=== PATIENT | female | born 1955 | race Caucasian/White ===

== ENCOUNTER 2021-02-06 10:17 | Inpatient (IN) ==
[2021-02-06] MEDS ORDERED: 0.9 % Sodium Chloride 1,000 ML IVC ONE ×2 (10:28→10:38)
[2021-02-06] MEDS ORDERED: Ondansetron 4 MG/2 ML VIAL IVP ONE (10:28)
[2021-02-06] MEDS ORDERED: Ipratropium/Albuterol Neb 3 ML IH ONE (10:30)
[2021-02-06] MEDS ORDERED: Isovue-370 500 ML BOTTLE IVP ONE (10:32)
[2021-02-06 10:53] LABS: Basophils % 0.2 %; Hematocrit 50.5 % (35.3-44.9); Hemoglobin 17.3 g/dL (11.5-15.4); Immature Granulocytes % 0.7 % (0-4); Lymphocytes # 2.5 K/mcL (0.6-4.6); Lymphocytes % 14.2 %; Mean Corpuscular HGB Conc 34.3 g/dL (31.6-35.5); Mean Corpuscular Hemoglobin 31.1 pg (28.0-33.3); Mean Corpuscular Volume 90.7 fL (83.0-100.0); Mean Platelet Volume 9.8 fL (9.4-12.4); Monocytes # 1.2 K/mcL (0.0-1.3); Monocytes % 6.7 %; Neutrophils # 13.5 K/mcL (1.6-8.9); Platelet Count 161 K/mcL (140-400); Red Blood Count 5.57 M/mcL (3.82-4.97); Red Cell Distribution Width 14.3 % (11.5-14.5); Segmented Neutrophils % 78.2 %; White Blood Count 17.2 K/mcL (4.3-11.1)
[2021-02-06 11:20] LABS: Alanine Aminotransferase 47 Units/L (7-52); Albumin 4.1 g/dL (3.5-5.7); Albumin/Globulin Ratio 0.8 (1.1-2.2); Alkaline Phosphatase 120 Units/L (34-104); Amylase 22 Units/L (29-103); Aspartate Amino Transferase 54 Units/L (13-39); BUN/Creatinine Ratio 30 (6-26); Bilirubin,Direct 0.7 mg/dL (0.0-0.2); Bilirubin,Indirect 1.3 mg/dL (0.0-1.0); Blood Urea Nitrogen 21 mg/dL (8-23); Carbon Dioxide 22 mEq/L (23-29); Chloride 96 mEq/L (98-107); Globulin 5.2 g/dL (2.4-3.5); Glucose 129 mg/dL (70-105); Lipase 9 Units/L (11-82); Osmolality,Calculated 275 (280-300); Potassium 3.3 mEq/L (3.5-5.1); Sodium 130 mEq/L (136-145); Total Protein 9.3 g/dL (6.4-8.9); Troponin I 1.87 ng/mL (< 0.04); eGFR For African Americans > 60 (> 60); eGFR For Non-African Americans > 60 (> 60)
[2021-02-06] MEDS ORDERED: Piperacillin/Tazobactam 3.375 GM in 0.9 % Sodium Chloride Mini Bag 100 ML IVPB ONE (11:26)
[2021-02-06] MEDS ORDERED: Aspirin Enteric Coated 325 MG Tablet PO STA (11:28)
[2021-02-06] MEDS ORDERED: *HR* Heparin 5,000 UNIT/ML VIAL IVP ONE (11:29)
[2021-02-06] MEDS ORDERED: *HR* Heparin 5,000 UNIT/ML VIAL IVP PRN (11:29)
[2021-02-06 12:02] LABS: Influenza A PCR Negative (Negative); Influenza B PCR Negative (Negative); Resp. Syncytial Virus PCR Negative (Negative); SARS-CoV-2 by PCR (In House) Negative (Negative)
[2021-02-06] MEDS ORDERED: DilTIAZem 50 MG in 0.9 % Sodium Chloride 40 ML IVC SCH (12:30)
[2021-02-06] MEDS ORDERED: Perflutren Lipid Microsphere 1.3 ML in 0.9 % Sodium Chloride 8.7 ML IVP PRN (12:31)
[2021-02-06] MEDS: Heparin 25,000UNIT/250ML 1/2NS 25,000 UNIT/250 ML IV.SOLN IVC SCH (12:43)
[2021-02-06 13:47] LABS: Bilirubin,Urine Negative (Negative); Blood,Urine Moderate (Negative); Clarity,Urine Clear (Clear); Color,Urine Colorless (Yellow); Glucose,Urine (UA) Normal (Normal); Ketones,Urine Negative (Negative); Leukocyte Esterase,Urine Negative (Negative); Mucus,Urine Few per lpf (None-Few); Nitrite,Urine Negative (Negative); PH,Urine 6.5 pH Units (5.0-8.0); Protein,Urine 30 mg/dL (Neg-Trace); Specific Gravity,Urine > 1.030 (1.010-1.025); Squamous Epithelial Cell,Urine Few per hpf (None-Few); Urobilinogen,Urine Normal (Normal); WBC,Urine 0-3 per hpf (0-3)
[2021-02-06] MEDS ORDERED: Naloxone 0.4 MG/ML INJ IVP PRN (14:17)
[2021-02-06] MEDS: 0.9 % Sodium Chloride w KCl 20 MEQ/1,000 ML MLS IVC SCH (17:21)
[2021-02-06] MEDS: Pantoprazole 40 MG VIAL IVP SCH (17:22)
[2021-02-06] MEDS: *HR* HYDROcodone/Acet 5/325 mg TABLET PO PRN (17:22)
[2021-02-06] MEDS ORDERED: Nitroglycerin 0.4 MG TAB.SUBL SL PRN (17:34)
[2021-02-06] MEDS ORDERED: GI Cocktail 40 ML EACH PO ONE (18:04)
[2021-02-06] MEDS: Ipratropium Neb 0.5 MG NEBULIZER IH SCH (20:02)
[2021-02-06] MEDS: Levalbuterol Neb 1.25 MG/3 ML IH SCH (20:02)
[2021-02-07] MEDS: Levalbuterol Neb 1.25 MG/3 ML IH SCH ×4 (03:51→20:43)
[2021-02-07] MEDS: Ipratropium Neb 0.5 MG NEBULIZER IH SCH ×4 (03:51→20:43)
[2021-02-07 06:02] LABS: Alanine Aminotransferase 29 Units/L (7-52); Albumin 2.8 g/dL (3.5-5.7); Albumin/Globulin Ratio 0.8 (1.1-2.2); Alkaline Phosphatase 74 Units/L (34-104); Aspartate Amino Transferase 37 Units/L (13-39); BUN/Creatinine Ratio 32 (6-26); Bilirubin,Direct 0.3 mg/dL (0.0-0.2); Bilirubin,Indirect 0.8 mg/dL (0.0-1.0); Bilirubin,Total 1.1 mg/dL (0.3-1.0); Blood Urea Nitrogen 20 mg/dL (8-23); Calcium 8.5 mg/dL (8.6-10.3); Carbon Dioxide 21 mEq/L (23-29); Chloride 109 mEq/L (98-107); Chol/HDL Ratio 3.7 (0-4.9); Cholesterol 108 mg/dL (< 200); Globulin 3.3 g/dL (2.4-3.5); Glucose 100 mg/dL (70-105); HDL Cholesterol 29 mg/dL (40-59); LDL Cholesterol,Calculated 65 mg/dL (< 100); Osmolality,Calculated 281 (280-300); Potassium 4.2 mEq/L (3.5-5.1); Sodium 134 mEq/L (136-145); Total Protein 6.1 g/dL (6.4-8.9); Triglycerides 70 mg/dL (< 150); eGFR For African Americans > 60 (> 60); eGFR For Non-African Americans > 60 (> 60)
[2021-02-07 06:09] LABS: Estimated Average Glucose 94 mg/dl; Hemoglobin A1C 4.9 %
[2021-02-07] MEDS: Pantoprazole 40 MG VIAL IVP SCH ×2 (06:10→18:30)
[2021-02-07] MEDS: *HR* HYDROcodone/Acet 5/325 mg TABLET PO PRN ×2 (07:23→13:28)
[2021-02-07] MEDS: Aspirin Enteric Coated 81 MG Tablet PO SCH (08:27)
[2021-02-07] MEDS: 0.9 % Sodium Chloride w KCl 20 MEQ/1,000 ML MLS IVC SCH ×2 (08:27→22:35)
[2021-02-07] MEDS: Ondansetron 4 MG/2 ML VIAL IVP PRN (09:44)
[2021-02-07] MEDS: Lidocaine Viscous Oral Soln 15 ML SOLUTION MM PRN (10:46)
[2021-02-07 11:15] LABS: Basophils % 0.1 %; Hematocrit 41.2 % (35.3-44.9); Immature Granulocytes % 0.5 % (0-4); Lymphocytes # 2.6 K/mcL (0.6-4.6); Lymphocytes % 19.3 %; Mean Corpuscular Hemoglobin 32.2 pg (28.0-33.3); Mean Corpuscular Volume 94.7 fL (83.0-100.0); Mean Platelet Volume 10.2 fL (9.4-12.4); Monocytes # 0.9 K/mcL (0.0-1.3); Monocytes % 6.5 %; Platelet Count 124 K/mcL (140-400); Red Blood Count 4.35 M/mcL (3.82-4.97); Red Cell Distribution Width 14.7 % (11.5-14.5); Segmented Neutrophils % 73.6 %
[2021-02-07 11:22] LABS: Neutrophils # 9.9 K/mcL (1.6-8.9); White Blood Count 13.4 K/mcL (4.3-11.1)
[2021-02-07] MEDS: lisinopriL 5 MG TABLET PO SCH (12:11)
[2021-02-07] MEDS: Sucralfate 1 GM TABLET PO SCH ×2 (15:48→22:26)
[2021-02-07 18:23] LABS: Hepatitis B Core IgM Nonreactive (Nonreactive); Hepatitis C Virus Antibody Nonreactive (Nonreactive)
[2021-02-07 18:25] LABS: Hepatitis A Antibody IgM Nonreactive (Nonreactive)
[2021-02-07] MEDS ORDERED: 0.9 % Sodium Chloride 500 ML ONE (20:42)
[2021-02-07] MEDS ORDERED: 0.9 % Sodium Chloride 500 ML IVC ONE ×2 (20:45→23:31)
[2021-02-07] MEDS: Acetaminophen 325 MG TABLET PO PRN (22:27)
[2021-02-07] MEDS: Heparin 25,000UNIT/250ML 1/2NS 25,000 UNIT/250 ML IV.SOLN IVC SCH (22:34)
[2021-02-07] MEDS: *HR* Heparin 5,000 UNIT/ML VIAL IVP PRN (22:36)
[2021-02-07 22:59] LABS: Hepatitis B Surface Antigen Reactive (Nonreactive)
[2021-02-08 00:46] LABS: Red Cell Distribution Width 14.8 % (11.5-14.5)
[2021-02-08 00:48] LABS: Hematocrit 33.6 % (35.3-44.9); Immature Platelets 2.7 % (1.1-6.1); Mean Corpuscular HGB Conc 32.7 g/dL (31.6-35.5); Mean Corpuscular Hemoglobin 31.4 pg (28.0-33.3); Mean Platelet Volume 9.8 fL (9.4-12.4); Red Blood Count 3.5 M/mcL (3.82-4.97); White Blood Count 5.2 K/mcL (4.3-11.1)
[2021-02-08] MEDS: Albumin 25% 25gram/100mL 25 GM/100 ML IV.SOLN IVPB SCH ×2 (00:53→07:41)
[2021-02-08 01:05] LABS: BUN/Creatinine Ratio 36 (6-26); Blood Urea Nitrogen 19 mg/dL (8-23); Calcium 8.2 mg/dL (8.6-10.3); Carbon Dioxide 21 mEq/L (23-29); Chloride 111 mEq/L (98-107); Glucose 92 mg/dL (70-105); Osmolality,Calculated 282 (280-300); Potassium 4.2 mEq/L (3.5-5.1); Sodium 135 mEq/L (136-145); eGFR For African Americans > 60 (> 60); eGFR For Non-African Americans > 60 (> 60)
[2021-02-08] MEDS ORDERED: Isovue-370 500 ML BOTTLE IVP ONE (02:38)
[2021-02-08] MEDS: Levalbuterol Neb 1.25 MG/3 ML IH SCH ×4 (04:09→19:45)
[2021-02-08] MEDS: Ipratropium Neb 0.5 MG NEBULIZER IH SCH ×4 (04:09→19:45)
[2021-02-08 04:50] LABS: Basophils % 0.3 %; Eosinophils % 0.3 %; Hematocrit 32.7 % (35.3-44.9); Hemoglobin 10.8 g/dL (11.5-15.4); Immature Granulocytes % 0.3 % (0-4); Lymphocytes # 1.9 K/mcL (0.6-4.6); Lymphocytes % 47.2 %; Mean Corpuscular Hemoglobin 32.3 pg (28.0-33.3); Mean Corpuscular Volume 97.9 fL (83.0-100.0); Mean Platelet Volume 9.9 fL (9.4-12.4); Monocytes # 0.3 K/mcL (0.0-1.3); Monocytes % 6.8 %; Neutrophils # 1.8 K/mcL (1.6-8.9); Red Blood Count 3.34 M/mcL (3.82-4.97); Red Cell Distribution Width 14.7 % (11.5-14.5); Segmented Neutrophils % 45.1 %
[2021-02-08 04:52] LABS: Platelet Count 67 K/mcL (140-400)
[2021-02-08] MEDS: *HR* Heparin 5,000 UNIT/ML VIAL IVP PRN (05:53)
[2021-02-08] MEDS: Sucralfate 1 GM TABLET PO SCH ×4 (05:53→21:03)
[2021-02-08] MEDS: Pantoprazole 40 MG VIAL IVP SCH ×2 (05:53→21:04)
[2021-02-08] MEDS: Aspirin Enteric Coated 81 MG Tablet PO SCH (07:41)
[2021-02-08] MEDS: lisinopriL 5 MG TABLET PO SCH ×2 (07:43→11:15)
[2021-02-08] MEDS: *HR* HYDROcodone/Acet 5/325 mg TABLET PO PRN (11:16)
[2021-02-08] MEDS: Lidocaine Viscous Oral Soln 15 ML SOLUTION MM PRN (11:52)
[2021-02-08] MEDS ORDERED: Morphine Sulfate 2 MG/ML SYRINGE IVP ONE (12:00)
[2021-02-08] MEDS ORDERED: *HR* Labetalol 20 MG/4 ML SYRINGE IVP ONE (12:50)
[2021-02-08] MEDS ORDERED: *HR* Labetalol 20 MG/4 ML SYRINGE IVP STA (12:55)
[2021-02-08] MEDS: 0.9 % Sodium Chloride w KCl 20 MEQ/1,000 ML MLS IVC SCH ×2 (12:59→16:27)
[2021-02-08] MEDS ORDERED: methylPREDNISolone 125 MG/2 ML VIAL IVP ONE (13:13)
[2021-02-08] MEDS ORDERED: methylPREDNISolone 125 MG/2 ML VIAL ONE (13:18)
[2021-02-08] MEDS ORDERED: hydrOXYzine pamoate 25 MG CAPSULE PO PRN (17:56)
[2021-02-08] MEDS: traZODone 50 MG TABLET PO SCH (21:03)
[2021-02-09] MEDS: Levalbuterol Neb 1.25 MG/3 ML IH SCH ×5 (03:54→22:01)
[2021-02-09] MEDS: Ipratropium Neb 0.5 MG NEBULIZER IH SCH ×4 (03:54→22:01)
[2021-02-09] MEDS: Pantoprazole 40 MG VIAL IVP SCH ×2 (04:45→15:23)
[2021-02-09 06:49] LABS: INR 1.4; Prothrombin Time 15.4 Seconds (9.4-12.1)
[2021-02-09 06:52] LABS: Hematocrit 32.3 % (35.3-44.9); Hemoglobin 10.5 g/dL (11.5-15.4); Immature Granulocytes % 0.4 % (0-4); Immature Platelets 3.4 % (1.1-6.1); Lymphocytes # 0.8 K/mcL (0.6-4.6); Mean Corpuscular HGB Conc 32.5 g/dL (31.6-35.5); Mean Corpuscular Hemoglobin 31.5 pg (28.0-33.3); Monocytes # 0.2 K/mcL (0.0-1.3); Monocytes % 6.1 %; Neutrophils # 1.8 K/mcL (1.6-8.9); Red Blood Count 3.33 M/mcL (3.82-4.97); Red Cell Distribution Width 14.7 % (11.5-14.5); Segmented Neutrophils % 63.5 %; White Blood Count 2.8 K/mcL (4.3-11.1)
[2021-02-09 06:55] LABS: Platelet Count 90 K/mcL (140-400)
[2021-02-09] MEDS: 0.9 % Sodium Chloride w KCl 20 MEQ/1,000 ML MLS IVC SCH ×2 (06:56→20:05)
[2021-02-09 07:06] LABS: BUN/Creatinine Ratio 23 (6-26); Blood Urea Nitrogen 13 mg/dL (8-23); Carbon Dioxide 26 mEq/L (23-29); Chloride 112 mEq/L (98-107); Glucose 108 mg/dL (70-105); Osmolality,Calculated 291 (280-300); Potassium 4.7 mEq/L (3.5-5.1); Sodium 140 mEq/L (136-145); eGFR For African Americans > 60 (> 60); eGFR For Non-African Americans > 60 (> 60)
[2021-02-09] MEDS: Aspirin Enteric Coated 81 MG Tablet PO SCH (08:32)
[2021-02-09] MEDS: Sucralfate 1 GM TABLET PO SCH ×4 (08:33→23:24)
[2021-02-09] MEDS: lisinopriL 5 MG TABLET PO SCH (08:33)
[2021-02-09] MEDS: predniSONE 20 MG TABLET PO SCH (09:59)
[2021-02-09] MEDS: Acetaminophen 325 MG TABLET PO PRN (16:10)
[2021-02-09] MEDS ORDERED: SODIUM CHLORIDE/NAHCO3/KCL/PEG 4,000 ML SOLN.RECON PO ONE (17:00)
[2021-02-09] MEDS: Ondansetron 4 MG/2 ML VIAL IVP PRN (17:15)
[2021-02-09] MEDS ORDERED: *HR* Promethazine 25 MG/ML VIAL IM PRN (18:01)
[2021-02-09] MEDS ORDERED: Levalbuterol Neb 1.25 MG/3 ML IH PRN (18:54)
[2021-02-09] MEDS: *HR* Labetalol 20 MG/4 ML SYRINGE IVP PRN ×2 (21:33→21:57)
[2021-02-09] MEDS ORDERED: niCARdipine 20 MG/200 ML MLS IVC SCH (22:15)
[2021-02-09 23:07] LABS: BUN/Creatinine Ratio 24 (6-26); Blood Urea Nitrogen 14 mg/dL (8-23); Carbon Dioxide 26 mEq/L (23-29); Chloride 107 mEq/L (98-107); Glucose 151 mg/dL (70-105); Magnesium 1.8 mg/dL (1.6-2.6); Osmolality,Calculated 287 (280-300); Potassium 4.4 mEq/L (3.5-5.1); Sodium 137 mEq/L (136-145); eGFR For African Americans > 60 (> 60); eGFR For Non-African Americans > 60 (> 60)
[2021-02-09] MEDS: traZODone 50 MG TABLET PO SCH (23:24)
[2021-02-10] MEDS ORDERED: 0.9 % Sodium Chloride 250 ML IVC ONE (01:02)
[2021-02-10 01:34] LABS: Basophils % 0.1 %; Mean Corpuscular Volume 96.1 fL (83.0-100.0)
[2021-02-10 01:36] LABS: Hematocrit 36.6 % (35.3-44.9); Hemoglobin 12.2 g/dL (11.5-15.4); Immature Platelets 2.2 % (1.1-6.1); Lymphocytes # 1.6 K/mcL (0.6-4.6); Lymphocytes % 17.8 %; Mean Corpuscular HGB Conc 33.3 g/dL (31.6-35.5); Mean Platelet Volume 9.5 fL (9.4-12.4); Monocytes # 0.6 K/mcL (0.0-1.3); Monocytes % 6.6 %; Platelet Count 140 K/mcL (140-400); Red Blood Count 3.81 M/mcL (3.82-4.97); Red Cell Distribution Width 14.7 % (11.5-14.5); Segmented Neutrophils % 74.5 %; White Blood Count 9.2 K/mcL (4.3-11.1)
[2021-02-10 02:02] LABS: BUN/Creatinine Ratio 23 (6-26); Blood Urea Nitrogen 14 mg/dL (8-23); Calcium 8.6 mg/dL (8.6-10.3); Carbon Dioxide 25 mEq/L (23-29); Chloride 107 mEq/L (98-107); Glucose 126 mg/dL (70-105); Osmolality,Calculated 288 (280-300); Potassium 3.9 mEq/L (3.5-5.1); Sodium 138 mEq/L (136-145); eGFR For African Americans > 60 (> 60); eGFR For Non-African Americans > 60 (> 60)
[2021-02-10 02:05] LABS: Basophils % 0.2 %; Hemoglobin 13.2 g/dL (11.5-15.4); Immature Granulocytes % 1.3 % (0-4); Lymphocytes # 1.4 K/mcL (0.6-4.6); Lymphocytes % 14.4 %; Mean Corpuscular HGB Conc 33.8 g/dL (31.6-35.5); Mean Corpuscular Volume 94.7 fL (83.0-100.0); Mean Platelet Volume 9.5 fL (9.4-12.4); Monocytes # 0.7 K/mcL (0.0-1.3); Monocytes % 6.8 %; Neutrophils # 7.4 K/mcL (1.6-8.9); Platelet Count 128 K/mcL (140-400); Red Blood Count 4.12 M/mcL (3.82-4.97); Red Cell Distribution Width 14.8 % (11.5-14.5); Segmented Neutrophils % 77.3 %; White Blood Count 9.6 K/mcL (4.3-11.1)
[2021-02-10 02:07] LABS: Neutrophils # 6.9 K/mcL (1.6-8.9)
[2021-02-10] MEDS: Ipratropium Neb 0.5 MG NEBULIZER IH SCH ×4 (03:33→22:14)
[2021-02-10] MEDS: Levalbuterol Neb 1.25 MG/3 ML IH SCH ×4 (03:33→22:14)
[2021-02-10] MEDS: Pantoprazole 40 MG VIAL IVP SCH ×2 (05:07→16:15)
[2021-02-10] MEDS: Sucralfate 1 GM TABLET PO SCH ×4 (07:37→20:58)
[2021-02-10] MEDS: lisinopriL 5 MG TABLET PO SCH (07:37)
[2021-02-10] MEDS: predniSONE 20 MG TABLET PO SCH (07:37)
[2021-02-10] MEDS: Acetaminophen 325 MG TABLET PO PRN (07:37)
[2021-02-10] MEDS: Aspirin Enteric Coated 81 MG Tablet PO SCH (07:38)
[2021-02-10] MEDS: *HR* Labetalol 20 MG/4 ML SYRINGE IVP PRN (09:07)
[2021-02-10] MEDS ORDERED: *HR* Labetalol 20 MG/4 ML SYRINGE IVP PRN (09:50)
[2021-02-10] MEDS ORDERED: *HR* Labetalol 20 MG/4 ML SYRINGE IVP ONE (09:50)
[2021-02-10] MEDS: *HR* HYDROcodone/Acet 5/325 mg TABLET PO PRN (10:58)
[2021-02-10] MEDS ORDERED: lisinopriL 20 MG TABLET PO SCH (13:30)
[2021-02-10] MEDS: amLODIPine 5 MG TABLET PO SCH (13:43)
[2021-02-10] MEDS ORDERED: hydrALAZINE 25 MG TABLET PO ONE (15:53)
[2021-02-10] MEDS ORDERED: hydrALAZINE 25 MG TABLET PO SCH (16:00)
[2021-02-10] MEDS ORDERED: 0.9 % Sodium Chloride 500 ML ONE ×2 (17:08→18:36)
[2021-02-10] MEDS: 0.9 % Sodium Chloride 500 ML IVC ONE ×2 (17:19→17:21)
[2021-02-10] MEDS ORDERED: 0.9 % Sodium Chloride 500 ML IVC ONE (18:39)
[2021-02-10] MEDS: traZODone 50 MG TABLET PO SCH (20:58)
[2021-02-11] MEDS: Ipratropium Neb 0.5 MG NEBULIZER IH SCH ×4 (04:37→21:56)
[2021-02-11] MEDS: Levalbuterol Neb 1.25 MG/3 ML IH SCH ×4 (04:37→21:56)
[2021-02-11] MEDS: Pantoprazole 40 MG VIAL IVP SCH (05:20)
[2021-02-11 08:08] LABS: Basophils % 0.2 %; Eosinophils % 0.2 %; Red Cell Distribution Width 14.6 % (11.5-14.5)
[2021-02-11 08:10] LABS: Hematocrit 40.4 % (35.3-44.9); Hemoglobin 13.4 g/dL (11.5-15.4); Immature Granulocytes % 0.6 % (0-4); Immature Platelets 3.4 % (1.1-6.1); Lymphocytes # 1.3 K/mcL (0.6-4.6); Lymphocytes % 26.2 %; Mean Corpuscular HGB Conc 33.2 g/dL (31.6-35.5); Mean Corpuscular Hemoglobin 31.7 pg (28.0-33.3); Mean Corpuscular Volume 95.5 fL (83.0-100.0); Mean Platelet Volume 9.5 fL (9.4-12.4); Monocytes # 0.3 K/mcL (0.0-1.3); Monocytes % 6.6 %; Neutrophils # 3.3 K/mcL (1.6-8.9); Platelet Count 114 K/mcL (140-400); Red Blood Count 4.23 M/mcL (3.82-4.97); Segmented Neutrophils % 66.2 %
[2021-02-11 08:32] LABS: Albumin 3.2 g/dL (3.5-5.7); Albumin/Globulin Ratio 1.1 (1.1-2.2); Bilirubin,Direct 0.4 mg/dL (0.0-0.2); Bilirubin,Indirect 0.6 mg/dL (0.0-1.0); Globulin 2.8 g/dL (2.4-3.5)
[2021-02-11 08:35] LABS: BUN/Creatinine Ratio 30 (6-26); Blood Urea Nitrogen 17 mg/dL (8-23); Calcium 8.8 mg/dL (8.6-10.3); Carbon Dioxide 29 mEq/L (23-29); Chloride 103 mEq/L (98-107); Glucose 86 mg/dL (70-105); Magnesium 1.7 mg/dL (1.6-2.6); Osmolality,Calculated 285 (280-300); Phosphorous 3.6 mg/dL (2.7-4.5); Sodium 137 mEq/L (136-145); eGFR For African Americans > 60 (> 60); eGFR For Non-African Americans > 60 (> 60)
[2021-02-11] MEDS: Aspirin Enteric Coated 81 MG Tablet PO SCH (09:06)
[2021-02-11] MEDS: predniSONE 20 MG TABLET PO SCH (09:06)
[2021-02-11] MEDS: Sucralfate 1 GM TABLET PO SCH ×4 (09:06→21:29)
[2021-02-11] MEDS: amLODIPine 5 MG TABLET PO SCH ×2 (09:06→09:41)
[2021-02-11] MEDS: lisinopriL 20 MG TABLET PO SCH ×2 (09:06→11:07)
[2021-02-11] MEDS: Ondansetron 4 MG/2 ML VIAL IVP PRN ×2 (10:55→21:29)
[2021-02-11 11:20] LABS: Hepatitis B Core Ab Total POSITIVE (Negative)
[2021-02-11 11:23] LABS: HBV Quant Interpretation DETECTED (Not Detected); HBV Quant Log by PCR 7.03 log IU/mL
[2021-02-11] MEDS: *HR* HYDROcodone/Acet 5/325 mg TABLET PO PRN (11:54)
[2021-02-11] MEDS ORDERED: GI Cocktail 40 ML EACH PO ONE (13:05)
[2021-02-11] MEDS: Famotidine 20 MG/2 ML VIAL IVP SCH ×2 (13:13→17:36)
[2021-02-11] MEDS: hydrALAZINE 25 MG TABLET PO SCH ×2 (13:15→21:29)
[2021-02-11] MEDS ORDERED: Metoclopramide 10 MG/2 ML VIAL IVP PRN (13:40)
[2021-02-11] MEDS: carvediloL 6.25 MG TABLET PO SCH (17:36)
[2021-02-11] MEDS: Lidocaine Viscous Oral Soln 15 ML SOLUTION MM PRN (20:38)
[2021-02-11] MEDS: traZODone 50 MG TABLET PO SCH (21:29)
[2021-02-12] MEDS: Ipratropium Neb 0.5 MG NEBULIZER IH SCH ×2 (04:22→13:09)
[2021-02-12] MEDS: Levalbuterol Neb 1.25 MG/3 ML IH SCH ×2 (04:22→13:09)
[2021-02-12] MEDS: hydrALAZINE 25 MG TABLET PO SCH ×3 (04:25→20:04)
[2021-02-12] MEDS: Famotidine 20 MG/2 ML VIAL IVP SCH ×2 (05:26→17:59)
[2021-02-12 06:23] LABS: Basophils % 0.1 %; Eosinophils % 0.3 %; Hematocrit 40.9 % (35.3-44.9); Hemoglobin 14.2 g/dL (11.5-15.4); Immature Granulocytes % 0.8 % (0-4); Lymphocytes # 1.9 K/mcL (0.6-4.6); Lymphocytes % 18.7 %; Mean Corpuscular HGB Conc 34.7 g/dL (31.6-35.5); Mean Corpuscular Hemoglobin 32.3 pg (28.0-33.3); Mean Corpuscular Volume 93.2 fL (83.0-100.0); Mean Platelet Volume 9.1 fL (9.4-12.4); Monocytes # 0.6 K/mcL (0.0-1.3); Neutrophils # 7.5 K/mcL (1.6-8.9); Platelet Count 107 K/mcL (140-400); Red Blood Count 4.39 M/mcL (3.82-4.97); Red Cell Distribution Width 14.5 % (11.5-14.5); Segmented Neutrophils % 74.1 %; White Blood Count 10.1 K/mcL (4.3-11.1)
[2021-02-12 06:47] LABS: BUN/Creatinine Ratio 28 (6-26); Blood Urea Nitrogen 17 mg/dL (8-23); Calcium 8.8 mg/dL (8.6-10.3); Carbon Dioxide 27 mEq/L (23-29); Chloride 99 mEq/L (98-107); Glucose 101 mg/dL (70-105); Magnesium 1.8 mg/dL (1.6-2.6); Osmolality,Calculated 276 (280-300); Phosphorous 3.1 mg/dL (2.7-4.5); Potassium 4.1 mEq/L (3.5-5.1); Sodium 132 mEq/L (136-145); eGFR For African Americans > 60 (> 60); eGFR For Non-African Americans > 60 (> 60)
[2021-02-12] MEDS ORDERED: Lidocaine -MPF 2% 5 ML VIAL ONE (07:57)
[2021-02-12] MEDS ORDERED: EPHEDrine 50 MG/ML VIAL ONE (07:58)
[2021-02-12] MEDS ORDERED: Levalbuterol Neb 1.25 MG/3 ML IH STA (08:08)
[2021-02-12] MEDS: Aspirin Enteric Coated 81 MG Tablet PO SCH (09:20)
[2021-02-12] MEDS: amLODIPine 5 MG TABLET PO SCH (09:20)
[2021-02-12] MEDS: predniSONE 20 MG TABLET PO SCH (09:20)
[2021-02-12] MEDS: Sucralfate 1 GM TABLET PO SCH ×4 (09:20→22:02)
[2021-02-12] MEDS: lisinopriL 20 MG TABLET PO SCH (09:20)
[2021-02-12] MEDS: carvediloL 6.25 MG TABLET PO SCH ×2 (09:20→16:15)
[2021-02-12] MEDS: Ondansetron 4 MG/2 ML VIAL IVP PRN (09:31)
[2021-02-12 10:34] LABS: Hepatitis Be Antigen POSITIVE (Negative)
[2021-02-12] MEDS: Ipratropium/Albuterol Neb 3 ML IH SCH ×4 (11:01→23:10)
[2021-02-12] MEDS: Acetaminophen 325 MG TABLET PO PRN (12:14)
[2021-02-12] MEDS: MethylPREDNISolone 40 MG/ML VIAL IVP SCH (16:15)
[2021-02-12] MEDS: traZODone 50 MG TABLET PO SCH (22:02)
[2021-02-13] MEDS: MethylPREDNISolone 40 MG/ML VIAL IVP SCH ×3 (00:04→17:10)
[2021-02-13 02:52] LABS: Basophils % 0.1 %; Hematocrit 45.2 % (35.3-44.9); Hemoglobin 15.5 g/dL (11.5-15.4); Immature Granulocytes % 0.8 % (0-4); Lymphocytes # 1.3 K/mcL (0.6-4.6); Lymphocytes % 15.6 %; Mean Corpuscular HGB Conc 34.3 g/dL (31.6-35.5); Mean Corpuscular Hemoglobin 31.4 pg (28.0-33.3); Mean Corpuscular Volume 91.7 fL (83.0-100.0); Mean Platelet Volume 9.5 fL (9.4-12.4); Monocytes # 0.2 K/mcL (0.0-1.3); Monocytes % 2.6 %; Neutrophils # 6.9 K/mcL (1.6-8.9); Platelet Count 119 K/mcL (140-400); Red Blood Count 4.93 M/mcL (3.82-4.97); Red Cell Distribution Width 14.2 % (11.5-14.5); Segmented Neutrophils % 80.9 %; White Blood Count 8.5 K/mcL (4.3-11.1)
[2021-02-13 03:02] LABS: BUN/Creatinine Ratio 36 (6-26); Blood Urea Nitrogen 20 mg/dL (8-23); Calcium 9.3 mg/dL (8.6-10.3); Carbon Dioxide 25 mEq/L (23-29); Chloride 98 mEq/L (98-107); Glucose 134 mg/dL (70-105); Magnesium 1.9 mg/dL (1.6-2.6); Osmolality,Calculated 277 (280-300); Phosphorous 3.7 mg/dL (2.7-4.5); Potassium 4.2 mEq/L (3.5-5.1); Sodium 131 mEq/L (136-145); eGFR For African Americans > 60 (> 60); eGFR For Non-African Americans > 60 (> 60)
[2021-02-13] MEDS: Ipratropium/Albuterol Neb 3 ML IH SCH ×6 (03:34→23:18)
[2021-02-13] MEDS: hydrALAZINE 25 MG TABLET PO SCH ×3 (04:23→23:07)
[2021-02-13] MEDS: Ondansetron 4 MG/2 ML VIAL IVP PRN (04:23)
[2021-02-13] MEDS: Famotidine 20 MG/2 ML VIAL IVP SCH ×2 (06:52→17:10)
[2021-02-13] MEDS: lisinopriL 20 MG TABLET PO SCH (08:45)
[2021-02-13] MEDS: Aspirin Enteric Coated 81 MG Tablet PO SCH (08:46)
[2021-02-13] MEDS: carvediloL 6.25 MG TABLET PO SCH ×2 (08:46→16:58)
[2021-02-13] MEDS: Sucralfate 1 GM TABLET PO SCH ×4 (08:46→23:04)
[2021-02-13] MEDS: amLODIPine 5 MG TABLET PO SCH (08:46)
[2021-02-13] MEDS ORDERED: GI Cocktail 40 ML EACH PO ONE (09:32)
[2021-02-13] MEDS: traZODone 50 MG TABLET PO SCH (23:07)
[2021-02-14] MEDS: MethylPREDNISolone 40 MG/ML VIAL IVP SCH ×3 (01:56→18:19)
[2021-02-14] MEDS: *HR* HYDROcodone/Acet 5/325 mg TABLET PO PRN ×2 (02:01→21:28)
[2021-02-14] MEDS: Ipratropium/Albuterol Neb 3 ML IH SCH ×6 (03:40→23:03)
[2021-02-14 05:14] LABS: Basophils % 0.1 %; Hemoglobin 14.4 g/dL (11.5-15.4); Lymphocytes # 1.2 K/mcL (0.6-4.6); Mean Corpuscular HGB Conc 33.5 g/dL (31.6-35.5); Mean Corpuscular Hemoglobin 31.1 pg (28.0-33.3); Mean Corpuscular Volume 92.9 fL (83.0-100.0); Monocytes # 0.2 K/mcL (0.0-1.3); Monocytes % 2.8 %; Neutrophils # 6.3 K/mcL (1.6-8.9); Platelet Count 105 K/mcL (140-400); Red Blood Count 4.63 M/mcL (3.82-4.97); Red Cell Distribution Width 14.3 % (11.5-14.5); Segmented Neutrophils % 81.1 %; White Blood Count 7.8 K/mcL (4.3-11.1)
[2021-02-14] MEDS: hydrALAZINE 25 MG TABLET PO SCH ×3 (05:43→21:24)
[2021-02-14] MEDS: Famotidine 20 MG/2 ML VIAL IVP SCH ×2 (05:43→18:19)
[2021-02-14 05:56] LABS: BUN/Creatinine Ratio 46 (6-26); Blood Urea Nitrogen 25 mg/dL (8-23); Calcium 8.6 mg/dL (8.6-10.3); Carbon Dioxide 27 mEq/L (23-29); Chloride 100 mEq/L (98-107); Glucose 111 mg/dL (70-105); Magnesium 2.1 mg/dL (1.6-2.6); Osmolality,Calculated 279 (280-300); Phosphorous 4.2 mg/dL (2.7-4.5); Potassium 4.5 mEq/L (3.5-5.1); Sodium 132 mEq/L (136-145); eGFR For African Americans > 60 (> 60); eGFR For Non-African Americans > 60 (> 60)
[2021-02-14] MEDS: lisinopriL 20 MG TABLET PO SCH (10:58)
[2021-02-14] MEDS: amLODIPine 5 MG TABLET PO SCH (10:58)
[2021-02-14] MEDS: Sucralfate 1 GM TABLET PO SCH ×4 (10:58→21:25)
[2021-02-14] MEDS: Aspirin Enteric Coated 81 MG Tablet PO SCH (10:58)
[2021-02-14] MEDS: carvediloL 6.25 MG TABLET PO SCH ×2 (10:58→18:03)
[2021-02-14 17:09] LABS: Bacteria,Urine Few per hpf (None-Few); Bilirubin,Urine Negative (Negative); Blood,Urine Trace (Negative); Clarity,Urine Turbid (Clear); Color,Urine Yellow (Yellow); Glucose,Urine (UA) Normal (Normal); Ketones,Urine Negative (Negative); Leukocyte Esterase,Urine Large (Negative); Nitrite,Urine Negative (Negative); PH,Urine 6.5 pH Units (5.0-8.0); Protein,Urine Trace mg/dL (Neg-Trace); Specific Gravity,Urine 1.023 (1.010-1.025); Squamous Epithelial Cell,Urine Few per hpf (None-Few); Urobilinogen,Urine >=8.0 mg/dL (Normal); WBC,Urine TNTC per hpf (0-3)
[2021-02-14] MEDS: traZODone 50 MG TABLET PO SCH (21:23)
[2021-02-15] MEDS: MethylPREDNISolone 40 MG/ML VIAL IVP SCH ×4 (00:58→23:08)
[2021-02-15] MEDS: Ipratropium/Albuterol Neb 3 ML IH SCH ×6 (04:06→23:17)
[2021-02-15] MEDS: hydrALAZINE 25 MG TABLET PO SCH ×3 (04:52→20:13)
[2021-02-15 06:21] LABS: Basophils % 0.3 %; Hematocrit 43.5 % (35.3-44.9); Immature Granulocytes % 0.7 % (0-4); Lymphocytes # 1.2 K/mcL (0.6-4.6); Lymphocytes % 16.1 %; Mean Corpuscular HGB Conc 34.5 g/dL (31.6-35.5); Mean Corpuscular Hemoglobin 31.7 pg (28.0-33.3); Mean Platelet Volume 9.4 fL (9.4-12.4); Monocytes # 0.2 K/mcL (0.0-1.3); Neutrophils # 5.9 K/mcL (1.6-8.9); Platelet Count 107 K/mcL (140-400); Red Blood Count 4.73 M/mcL (3.82-4.97); Segmented Neutrophils % 79.9 %; White Blood Count 7.4 K/mcL (4.3-11.1)
[2021-02-15] MEDS: Famotidine 20 MG/2 ML VIAL IVP SCH ×2 (06:31→17:25)
[2021-02-15 06:40] LABS: BUN/Creatinine Ratio 42 (6-26); Blood Urea Nitrogen 25 mg/dL (8-23); Calcium 8.7 mg/dL (8.6-10.3); Carbon Dioxide 27 mEq/L (23-29); Chloride 100 mEq/L (98-107); Glucose 122 mg/dL (70-105); Magnesium 2.2 mg/dL (1.6-2.6); Osmolality,Calculated 280 (280-300); Phosphorous 4.4 mg/dL (2.7-4.5); Potassium 4.5 mEq/L (3.5-5.1); Sodium 132 mEq/L (136-145); eGFR For African Americans > 60 (> 60); eGFR For Non-African Americans > 60 (> 60)
[2021-02-15] MEDS: Sucralfate 1 GM TABLET PO SCH ×4 (08:18→23:07)
[2021-02-15] MEDS: carvediloL 6.25 MG TABLET PO SCH ×2 (10:37→17:21)
[2021-02-15] MEDS: Aspirin Enteric Coated 81 MG Tablet PO SCH (10:38)
[2021-02-15] MEDS: lisinopriL 20 MG TABLET PO SCH (10:38)
[2021-02-15] MEDS: amLODIPine 5 MG TABLET PO SCH (10:38)
[2021-02-15] MEDS ORDERED: *HR* Propofol 200 MG/20 ML VIAL IVP ONE (13:14)
[2021-02-15] MEDS ORDERED: Lidocaine -MPF 2% 5 ML VIAL ONE (13:14)
[2021-02-15] MEDS: polyethylene glycoL 3350 17 GM POWD.PACK PO SCH (17:22)
[2021-02-15] MEDS: traZODone 50 MG TABLET PO SCH (20:13)
[2021-02-15] MEDS ORDERED: Saline Nasal Spray 44 ML BOTTLE NS PRN (20:30)
[2021-02-16] MEDS: Ipratropium/Albuterol Neb 3 ML IH SCH ×6 (03:52→23:35)
[2021-02-16 04:48] LABS: Basophils % 0.1 %; Hematocrit 43.2 % (35.3-44.9); Hemoglobin 14.8 g/dL (11.5-15.4); Immature Granulocytes % 0.7 % (0-4); Immature Platelets 2.3 % (1.1-6.1); Lymphocytes # 1.3 K/mcL (0.6-4.6); Lymphocytes % 13.4 %; Mean Corpuscular HGB Conc 34.3 g/dL (31.6-35.5); Mean Corpuscular Volume 90.6 fL (83.0-100.0); Mean Platelet Volume 9.2 fL (9.4-12.4); Monocytes # 0.5 K/mcL (0.0-1.3); Monocytes % 4.8 %; Neutrophils # 7.8 K/mcL (1.6-8.9); Platelet Count 133 K/mcL (140-400); Red Blood Count 4.77 M/mcL (3.82-4.97); Red Cell Distribution Width 13.9 % (11.5-14.5); White Blood Count 9.7 K/mcL (4.3-11.1)
[2021-02-16 05:02] LABS: BUN/Creatinine Ratio 38 (6-26); Blood Urea Nitrogen 24 mg/dL (8-23); Calcium 8.5 mg/dL (8.6-10.3); Carbon Dioxide 26 mEq/L (23-29); Chloride 101 mEq/L (98-107); Glucose 145 mg/dL (70-105); Magnesium 2.2 mg/dL (1.6-2.6); Osmolality,Calculated 279 (280-300); Phosphorous 3.7 mg/dL (2.7-4.5); Potassium 4.5 mEq/L (3.5-5.1); Sodium 131 mEq/L (136-145); eGFR For African Americans > 60 (> 60); eGFR For Non-African Americans > 60 (> 60)
[2021-02-16] MEDS: Famotidine 20 MG/2 ML VIAL IVP SCH ×2 (05:26→18:01)
[2021-02-16] MEDS: hydrALAZINE 25 MG TABLET PO SCH ×2 (05:27→14:05)
[2021-02-16] MEDS: Ondansetron 4 MG/2 ML VIAL IVP PRN (09:34)
[2021-02-16] MEDS: amLODIPine 5 MG TABLET PO SCH (09:36)
[2021-02-16] MEDS: carvediloL 6.25 MG TABLET PO SCH ×2 (09:36→18:08)
[2021-02-16] MEDS: Aspirin Enteric Coated 81 MG Tablet PO SCH (09:36)
[2021-02-16] MEDS: lisinopriL 20 MG TABLET PO SCH (09:37)
[2021-02-16] MEDS: polyethylene glycoL 3350 17 GM POWD.PACK PO SCH (09:39)
[2021-02-16] MEDS: MethylPREDNISolone 40 MG/ML VIAL IVP SCH ×2 (09:42→18:01)
[2021-02-16] MEDS: Sucralfate 1 GM TABLET PO SCH ×4 (09:44→20:45)
[2021-02-16] MEDS ORDERED: FLU Vac QV 21-22 (6Month+)/PF 0.5 ML SYRINGE IM ONE (11:43)
[2021-02-16] MEDS ORDERED: 0.9 % Sodium Chloride 500 ML IVC ONE ×2 (14:03→17:10)
[2021-02-16] MEDS: traZODone 50 MG TABLET PO SCH (20:45)
[2021-02-17] MEDS: MethylPREDNISolone 40 MG/ML VIAL IVP SCH (00:06)
[2021-02-17] MEDS: Ipratropium/Albuterol Neb 3 ML IH SCH ×6 (04:13→23:46)
[2021-02-17] MEDS: Famotidine 20 MG/2 ML VIAL IVP SCH ×2 (05:07→17:39)
[2021-02-17] MEDS: Sucralfate 1 GM TABLET PO SCH ×4 (07:30→20:57)
[2021-02-17] MEDS ORDERED: lisinopriL 20 MG TABLET PO SCH ×2 (09:00)
[2021-02-17] MEDS ORDERED: amLODIPine 5 MG TABLET PO SCH (09:00)
[2021-02-17] MEDS: polyethylene glycoL 3350 17 GM POWD.PACK PO SCH (09:23)
[2021-02-17] MEDS: predniSONE 20 MG TABLET PO SCH (09:24)
[2021-02-17] MEDS: Aspirin Enteric Coated 81 MG Tablet PO SCH (09:24)
[2021-02-17] MEDS: *HR* HYDROcodone/Acet 5/325 mg TABLET PO PRN (09:27)
[2021-02-17] MEDS: carvediloL 6.25 MG TABLET PO SCH (09:29)
[2021-02-17] MEDS ORDERED: 0.9 % Sodium Chloride 500 ML IVC SCH (13:15)
[2021-02-17 15:00] LABS: Thyroid Stimulating Hormone 0.051 mcIU/mL (0.340-5.600)
[2021-02-17] MEDS: Cefdinir 300 MG CAPSULE PO SCH ×2 (16:01→20:56)
[2021-02-17] MEDS: traZODone 50 MG TABLET PO SCH (20:56)
[2021-02-18 00:56] LABS: Basophils % 0.1 %; Hematocrit 39.5 % (35.3-44.9); Hemoglobin 13.7 g/dL (11.5-15.4); Immature Granulocytes % 0.4 % (0-4); Lymphocytes # 3.1 K/mcL (0.6-4.6); Lymphocytes % 30.3 %; Mean Corpuscular HGB Conc 34.7 g/dL (31.6-35.5); Mean Corpuscular Volume 92.3 fL (83.0-100.0); Mean Platelet Volume 9.8 fL (9.4-12.4); Monocytes % 9.4 %; Neutrophils # 6.1 K/mcL (1.6-8.9); Platelet Count 110 K/mcL (140-400); Red Blood Count 4.28 M/mcL (3.82-4.97); Red Cell Distribution Width 14.1 % (11.5-14.5); Segmented Neutrophils % 59.8 %; White Blood Count 10.1 K/mcL (4.3-11.1)
[2021-02-18 01:31] LABS: Triiodothyronine (T3) Free 2.53 pg/mL (2.50-3.90)
[2021-02-18 01:33] LABS: Alanine Aminotransferase 41 Units/L (7-52); Albumin 2.6 g/dL (3.5-5.7); Albumin/Globulin Ratio 1.1 (1.1-2.2); Alkaline Phosphatase 99 Units/L (34-104); Aspartate Amino Transferase 32 Units/L (13-39); BUN/Creatinine Ratio 34 (6-26); Bilirubin,Total 0.6 mg/dL (0.3-1.0); Blood Urea Nitrogen 20 mg/dL (8-23); Calcium 7.8 mg/dL (8.6-10.3); Carbon Dioxide 25 mEq/L (23-29); Chloride 106 mEq/L (98-107); Globulin 2.4 g/dL (2.4-3.5); Glucose 146 mg/dL (70-105); Osmolality,Calculated 285 (280-300); Phosphorous 2.8 mg/dL (2.7-4.5); Potassium 4.5 mEq/L (3.5-5.1); Sodium 135 mEq/L (136-145); eGFR For African Americans > 60 (> 60); eGFR For Non-African Americans > 60 (> 60)
[2021-02-18] MEDS: Ipratropium/Albuterol Neb 3 ML IH SCH ×6 (03:46→23:21)
[2021-02-18] MEDS: Famotidine 20 MG/2 ML VIAL IVP SCH (05:16)
[2021-02-18] MEDS ORDERED: 0.9 % Sodium Chloride 1,000 ML IVC SCH (07:45)
[2021-02-18] MEDS: Sucralfate 1 GM TABLET PO SCH ×4 (09:50→23:10)
[2021-02-18] MEDS: Cefdinir 300 MG CAPSULE PO SCH ×2 (09:57→23:10)
[2021-02-18] MEDS: polyethylene glycoL 3350 17 GM POWD.PACK PO SCH (09:57)
[2021-02-18] MEDS: Aspirin Enteric Coated 81 MG Tablet PO SCH (09:57)
[2021-02-18] MEDS: predniSONE 20 MG TABLET PO SCH (09:57)
[2021-02-18] MEDS: traZODone 50 MG TABLET PO SCH (23:10)
[2021-02-18] MEDS: Famotidine 20 MG TABLET PO SCH (23:11)
[2021-02-19] MEDS: Ipratropium/Albuterol Neb 3 ML IH SCH ×3 (04:33→11:48)
[2021-02-19 06:44] VITALS: PULSE 58; TEMP 98.4
[2021-02-19] MEDS: Cefdinir 300 MG CAPSULE PO SCH (07:58)
[2021-02-19] MEDS: Sucralfate 1 GM TABLET PO SCH ×2 (07:58→11:10)
[2021-02-19] MEDS: Aspirin Enteric Coated 81 MG Tablet PO SCH (07:58)
[2021-02-19] MEDS: Famotidine 20 MG TABLET PO SCH (07:58)
[2021-02-19] MEDS: polyethylene glycoL 3350 17 GM POWD.PACK PO SCH (07:59)
[2021-02-19] MEDS ORDERED: predniSONE 20 MG TABLET PO SCH (09:00)
[2021-02-19 09:12] VITALS: BP 110/51
[2021-02-19 14:46] VITALS: O2SAT 96
== END 2021-02-19 12:00 | disposition home or self-care (01) | DRG 190 ==
LOC: EMEROOARM 10:17 → 2NENU 10:17 → SUATTDRO 14:37 → 2NENU 15:35 → SUATTDRO 17:18
PROVIDERS: ADMIT Pharmacist; ATTEND Internal Medicine

== ENCOUNTER 2022-02-15 12:22 | Inpatient (IN) ==
[2022-02-15] MEDS ORDERED: Piperacillin/Tazobactam 3.375 GM in 0.9 % Sodium Chloride Mini Bag 100 ML IVPB ONE (15:11)
[2022-02-15] MEDS ORDERED: Ondansetron 4 MG/2 ML VIAL IVP ONE (15:12)
[2022-02-15] MEDS ORDERED: 0.9 % Sodium Chloride 1,000 ML IVC ONE ×2 (15:12→18:18)
[2022-02-15] MEDS ORDERED: Morphine Sulfate 2 MG/ML SYRINGE IVP ONE (15:13)
[2022-02-15 15:32] LABS: Basophils # 0.1 K/mcL (0.0-0.2); Basophils % 0.5 %; Hematocrit 44.6 % (35.3-44.9); Hemoglobin 15.6 g/dL (11.5-15.4); Immature Granulocytes % 1.3 % (0-4); Lymphocytes # 1.6 K/mcL (0.6-4.6); Lymphocytes % 12.3 %; Mean Corpuscular Hemoglobin 30.2 pg (28.0-33.3); Mean Corpuscular Volume 86.4 fL (83.0-100.0); Mean Platelet Volume 10.3 fL (9.4-12.4); Monocytes % 3.5 %; Neutrophils # 10.5 K/mcL (1.6-8.9); Platelet Count 175 K/mcL (140-400); Red Blood Count 5.16 M/mcL (3.82-4.97); Red Cell Distribution Width 13.4 % (11.5-14.5); Segmented Neutrophils % 82.4 %; White Blood Count 12.7 K/mcL (4.3-11.1)
[2022-02-15 15:53] LABS: Albumin 3.9 g/dL (3.5-5.7); Albumin/Globulin Ratio 0.9 (1.1-2.2); Bilirubin,Direct 0.3 mg/dL (0.0-0.2); Bilirubin,Indirect 0.7 mg/dL (0.0-1.0); Calcium 9.6 mg/dL (8.6-10.3); Globulin 4.3 g/dL (2.4-3.5); Potassium 3.5 mEq/L (3.5-5.1); Total Protein 8.2 g/dL (6.4-8.9); Troponin I 0.24 ng/mL (< 0.04)
[2022-02-15 16:06] LABS: Monocytes # 0.4 K/mcL (0.0-1.3)
[2022-02-15] MEDS: Norepinephrine 4 MG/254 ML IV.SOLN IVC SCH (21:53)
[2022-02-15] MEDS ORDERED: Ringers Solution, Lactated 1,000 ML IVC ONE (23:12)
[2022-02-16] MEDS: 0.9 % Sodium Chloride 1,000 ML IVC SCH (02:00)
[2022-02-16] MEDS ORDERED: Naloxone 0.4 MG/ML INJ IVP PRN (04:55)
[2022-02-16] MEDS ORDERED: Acetaminophen 325 MG TABLET PO PRN (04:55)
[2022-02-16] MEDS ORDERED: Piperacillin/Tazobactam 3.375 GM in 0.9 % Sodium Chloride Mini Bag 100 ML IVPB SCH (04:57)
[2022-02-16 05:21] LABS: Basophils % 0.2 %; Eosinophils % 0.2 %; Hematocrit 34.6 % (35.3-44.9); Lymphocytes # 2.7 K/mcL (0.6-4.6); Lymphocytes % 30.4 %; Mean Corpuscular HGB Conc 34.4 g/dL (31.6-35.5); Mean Corpuscular Hemoglobin 30.3 pg (28.0-33.3); Mean Platelet Volume 9.5 fL (9.4-12.4); Monocytes # 0.7 K/mcL (0.0-1.3); Neutrophils # 5.3 K/mcL (1.6-8.9); Platelet Count 133 K/mcL (140-400); Red Blood Count 3.93 M/mcL (3.82-4.97); Red Cell Distribution Width 13.8 % (11.5-14.5); Segmented Neutrophils % 60.2 %; White Blood Count 8.8 K/mcL (4.3-11.1)
[2022-02-16 05:22] LABS: Hemoglobin 11.9 g/dL (11.5-15.4)
[2022-02-16 05:30] LABS: INR 1.5; Prothrombin Time 16.4 Seconds (9.4-12.1)
[2022-02-16 05:32] LABS: Activated Partial Thrombo Time 26.3 Seconds (26.0-36.0)
[2022-02-16 05:43] LABS: Alanine Aminotransferase 32 Units/L (7-52); Albumin 2.9 g/dL (3.5-5.7); Albumin/Globulin Ratio 0.9 (1.1-2.2); Alkaline Phosphatase 74 Units/L (34-104); Aspartate Amino Transferase 34 Units/L (13-39); BUN/Creatinine Ratio 28 (6-26); Bilirubin,Direct 0.2 mg/dL (0.0-0.2); Bilirubin,Indirect 0.4 mg/dL (0.0-1.0); Bilirubin,Total 0.6 mg/dL (0.3-1.0); Blood Urea Nitrogen 20 mg/dL (8-23); Calcium 8.5 mg/dL (8.6-10.3); Carbon Dioxide 23 mEq/L (23-29); Chloride 106 mEq/L (98-107); Globulin 3.1 g/dL (2.4-3.5); Glucose 91 mg/dL (70-105); Magnesium 1.6 mg/dL (1.6-2.6); Osmolality,Calculated 284 (280-300); Potassium 3.3 mEq/L (3.5-5.1); Sodium 136 mEq/L (136-145)
[2022-02-16] MEDS: Piperacillin/Tazobactam 3.375 GM in 0.9 % Sodium Chloride Mini Bag 100 ML IVPB SCH ×3 (05:59→21:34)
[2022-02-16] MEDS: Pantoprazole 40 MG VIAL IVP SCH (08:36)
[2022-02-16] MEDS: *HR* Heparin 5,000 UNIT/ML VIAL SQ SCH ×2 (08:37→16:47)
[2022-02-16] MEDS ORDERED: Iopamidol - 370 500 ML MLS IVP ONE (10:42)
[2022-02-16] MEDS: Albumin Human 5% 12.5 GM/250 ML IV.SOLN IVC SCH ×2 (10:49→14:57)
[2022-02-16 14:19] LABS: Bacteria,Urine Few per hpf (None-Few); Bilirubin,Urine Negative (Negative); Blood,Urine Small (Negative); Clarity,Urine Turbid (Clear); Color,Urine Light-Yellow (Yellow); Glucose,Urine (UA) Normal (Normal); Ketones,Urine Negative (Negative); Leukocyte Esterase,Urine Large (Negative); Mucus,Urine Few per lpf (None-Few); Nitrite,Urine Negative (Negative); PH,Urine 5.5 pH Units (5.0-8.0); Protein,Urine Negative (Neg-Trace); Specific Gravity,Urine 1.017 (1.010-1.025); Squamous Epithelial Cell,Urine Few per hpf (None-Few); Urobilinogen,Urine Normal (Normal); WBC,Urine TNTC per hpf (0-3)
[2022-02-16] MEDS ORDERED: predniSONE 10 MG TABLET PO SCH (15:00)
[2022-02-16] MEDS: predniSONE 10 MG TABLET PO SCH (21:35)
[2022-02-16] MEDS: Norepinephrine 4 MG/254 ML IV.SOLN IVC SCH (21:36)
[2022-02-17] MEDS: *HR* Heparin 5,000 UNIT/ML VIAL SQ SCH ×3 (00:28→16:47)
[2022-02-17] MEDS: predniSONE 10 MG TABLET PO SCH (03:27)
[2022-02-17 03:54] LABS: Basophils % 0.4 %; Hematocrit 35.7 % (35.3-44.9); Hemoglobin 11.7 g/dL (11.5-15.4); Immature Granulocytes % 1.2 % (0-4); Lymphocytes # 0.9 K/mcL (0.6-4.6); Lymphocytes % 35.6 %; Mean Corpuscular HGB Conc 32.8 g/dL (31.6-35.5); Mean Corpuscular Hemoglobin 30.2 pg (28.0-33.3); Mean Corpuscular Volume 92.2 fL (83.0-100.0); Mean Platelet Volume 9.9 fL (9.4-12.4); Monocytes # 0.1 K/mcL (0.0-1.3); Neutrophils # 1.5 K/mcL (1.6-8.9); Platelet Count 113 K/mcL (140-400); Red Blood Count 3.87 M/mcL (3.82-4.97); Red Cell Distribution Width 14.2 % (11.5-14.5); Segmented Neutrophils % 60.8 %
[2022-02-17 04:21] LABS: Albumin 3.5 g/dL (3.5-5.7); Albumin/Globulin Ratio 1.1 (1.1-2.2); Bilirubin,Direct 0.2 mg/dL (0.0-0.2); Bilirubin,Indirect 0.5 mg/dL (0.0-1.0); Bilirubin,Total 0.7 mg/dL (0.3-1.0); Calcium 9.2 mg/dL (8.6-10.3); Globulin 3.1 g/dL (2.4-3.5); Magnesium 2.1 mg/dL (1.6-2.6); Potassium 4.8 mEq/L (3.5-5.1); Total Protein 6.6 g/dL (6.4-8.9)
[2022-02-17 05:13] LABS: White Blood Count 2.5 K/mcL (4.3-11.1)
[2022-02-17 05:14] LABS: Platelet Estimate Slight Decrease (Normal); Reactive Lymphocytes Present (Not Present)
[2022-02-17] MEDS: Piperacillin/Tazobactam 3.375 GM in 0.9 % Sodium Chloride Mini Bag 100 ML IVPB SCH ×3 (06:47→22:03)
[2022-02-17] MEDS: Pantoprazole 40 MG VIAL IVP SCH (07:33)
[2022-02-17] MEDS ORDERED: predniSONE 20 MG TABLET PO SCH (12:00)
[2022-02-17] MEDS ORDERED: *HR* Propofol 200 MG/20 ML VIAL IVP ONE (14:01)
[2022-02-17] MEDS: 0.9 % Sodium Chloride 1,000 ML IVC SCH (14:06)
[2022-02-17] MEDS ORDERED: Lidocaine -MPF 2% 2 ML VIAL ONE (14:26)
[2022-02-18] MEDS: *HR* Heparin 5,000 UNIT/ML VIAL SQ SCH ×3 (00:01→16:29)
[2022-02-18 03:46] LABS: Basophils % 0.2 %; Eosinophils % 0.2 %; Hematocrit 33.4 % (35.3-44.9); Hemoglobin 11.1 g/dL (11.5-15.4); Immature Granulocytes % 1.2 % (0-4); Lymphocytes % 34.2 %; Mean Corpuscular HGB Conc 33.2 g/dL (31.6-35.5); Mean Corpuscular Hemoglobin 30.8 pg (28.0-33.3); Mean Corpuscular Volume 92.8 fL (83.0-100.0); Mean Platelet Volume 9.8 fL (9.4-12.4); Monocytes # 0.4 K/mcL (0.0-1.3); Monocytes % 6.2 %; Neutrophils # 3.3 K/mcL (1.6-8.9); Platelet Count 132 K/mcL (140-400); Red Cell Distribution Width 14.4 % (11.5-14.5); White Blood Count 5.7 K/mcL (4.3-11.1)
[2022-02-18 04:19] LABS: Calcium 8.1 mg/dL (8.6-10.3); Potassium 3.8 mEq/L (3.5-5.1)
[2022-02-18] MEDS: Piperacillin/Tazobactam 3.375 GM in 0.9 % Sodium Chloride Mini Bag 100 ML IVPB SCH ×3 (05:42→21:45)
[2022-02-18] MEDS ORDERED: predniSONE 20 MG TABLET PO ONE (13:36)
[2022-02-18] MEDS ORDERED: hydrOXYzine pamoate 25 MG CAPSULE PO PRN (18:32)
[2022-02-18] MEDS ORDERED: Ipratropium/Albuterol Neb 3 ML IH PRN (18:32)
[2022-02-18] MEDS: Sucralfate 1 GM TABLET PO SCH (21:44)
[2022-02-19] MEDS: *HR* Heparin 5,000 UNIT/ML VIAL SQ SCH ×4 (00:17→23:46)
[2022-02-19] MEDS: Piperacillin/Tazobactam 3.375 GM in 0.9 % Sodium Chloride Mini Bag 100 ML IVPB SCH ×3 (07:04→21:24)
[2022-02-19] MEDS ORDERED: Budesonide/Formoterol 80/4.5 1 PUFF INH IH ONE (07:37)
[2022-02-19] MEDS: Budesonide/Formoterol 80/4.5 1 PUFF INH IH SCH (07:39)
[2022-02-19] MEDS: Tiotropium 10 INH DOSE IH SCH (07:40)
[2022-02-19 08:12] LABS: Basophils % 0.3 %; Hemoglobin 11.6 g/dL (11.5-15.4); Immature Granulocytes % 0.9 % (0-4); Lymphocytes # 1.3 K/mcL (0.6-4.6); Lymphocytes % 37.2 %; Mean Corpuscular HGB Conc 32.2 g/dL (31.6-35.5); Mean Corpuscular Hemoglobin 30.1 pg (28.0-33.3); Mean Corpuscular Volume 93.3 fL (83.0-100.0); Mean Platelet Volume 9.4 fL (9.4-12.4); Monocytes # 0.2 K/mcL (0.0-1.3); Monocytes % 7.1 %; Neutrophils # 1.8 K/mcL (1.6-8.9); Platelet Count 131 K/mcL (140-400); Red Blood Count 3.86 M/mcL (3.82-4.97); Red Cell Distribution Width 14.6 % (11.5-14.5); Segmented Neutrophils % 54.5 %; White Blood Count 3.4 K/mcL (4.3-11.1)
[2022-02-19 08:13] LABS: Calcium 8.4 mg/dL (8.6-10.3); Magnesium 2.1 mg/dL (1.6-2.6); Potassium 4.3 mEq/L (3.5-5.1)
[2022-02-19] MEDS: Sucralfate 1 GM TABLET PO SCH ×4 (08:24→21:24)
[2022-02-19] MEDS: Aspirin Enteric Coated 81 MG Tablet PO SCH (08:26)
[2022-02-19] MEDS ORDERED: predniSONE 10 MG TABLET PO SCH (09:00)
[2022-02-19] MEDS ORDERED: Piperacillin/Tazobactam 3.375 GM VIAL ONE (13:28)
[2022-02-20] MEDS: Piperacillin/Tazobactam 3.375 GM in 0.9 % Sodium Chloride Mini Bag 100 ML IVPB SCH (06:09)
[2022-02-20] MEDS ORDERED: predniSONE 10 MG TABLET PO SCH (09:00)
[2022-02-20] MEDS: *HR* Heparin 5,000 UNIT/ML VIAL SQ SCH ×2 (09:34→09:42)
[2022-02-20] MEDS: Sucralfate 1 GM TABLET PO SCH (09:34)
[2022-02-20] MEDS: Aspirin Enteric Coated 81 MG Tablet PO SCH (09:39)
[2022-02-20] MEDS: Budesonide/Formoterol 80/4.5 1 PUFF INH IH SCH (10:39)
[2022-02-20] MEDS: Tiotropium 10 INH DOSE IH SCH (10:39)
[2022-02-20 11:24] VITALS: BP 133/66; PULSE 55; TEMP 97.5; O2SAT 94
== END 2022-02-20 13:16 | disposition home or self-care (01) | DRG 720 ==
LOC: ICNU 12:22 → EMEROOARM 12:22 → ICNU 02-16 03:01 → SUATTDRO 02-16 04:55 → 3NENU 02-17 14:00
PROVIDERS: ADMIT Internal Medicine; ATTEND Internal Medicine